=== PATIENT | female | born 1990 | race Hispanic/Latino ===

== ENCOUNTER 2016-10-20 14:36 | Emergency (ER) | payer OTHER ==
[2016-10-20 16:15] LABS: Basophils % (Auto) 0.6 % (0.0-1.8); Eosinophils % (Auto) 2.3 % (0.0-4.3); Hematocrit 40.5 % (30.3-42.9); Hemoglobin 13.3 gm/dl (10.1-14.3); Mean Corpuscular HGB Conc 33 % (30-34); Mean Corpuscular Hemoglobin 29 pg (28-32); Mean Corpuscular Volume 89 fl (79-97); Platelet Count 225 K/mm3 (140-440); Red Blood Count 4.56 M/mm3 (3.65-5.03); Red Cell Distribution Width 12.6 % (13.2-15.2); White Blood Count 3.7 K/mm3 (4.5-11.0)
[2016-10-20 16:35] LABS: BUN/Creatinine Ratio 21.66; Blood Urea Nitrogen 13 mg/dL (7-17); Calcium 8.5 mg/dL (8.4-10.2); Carbon Dioxide 26 mmol/L (22-30); Glucose 68 mg/dL (65-100)
[2016-10-20 16:36] LABS: Anion Gap 18 mmol/L; Potassium 3.9 mmol/L (3.6-5.0); Sodium 138 mmol/L (137-145)
[2016-10-20 22:57] LABS: Creatine Kinase 110 units/L (30-135)
[2016-10-20 23:00] LABS: Bilirubin,Urine NEG (Negative); Blood,Urine NEG (Negative); Ketones,Urine TR mg/dL (Negative); Leukocyte Esterase,Urine MOD (Negative); Mucus,Urine 3+ /HPF; Nitrite,Urine NEG (Negative); Urobilinogen,Urine < 2.0 mg/dL (<2.0)
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
[2016-10-20 23:05] LABS: Creatine Kinase MB < 1.0 ng/mL (0.0-4.0)
[2016-10-20 23:20] VITALS: BP 99/62
--- NOTE | 2016-10-21 08:02 | XRay Report ---
ROUTINE CHEST, TWO VIEWS: HISTORY: chest pain. The trachea, heart, mediastinal contour, lung eldridge and bony thorax are unremarkable. IMPRESSION: Unremarkable chest x-ray.
== END 2016-10-21 00:50 | disposition home or self-care (01) ==
LOC: ED 14:36
DX: N39.0 Urinary tract infection, site not specified (principal); R07.89 Other chest pain; G43.909 Migraine, unspecified, not intractable, without status migrainosus
CPT/HCPCS: 36415; 71020; 80048; 81001; 81025; 82550; 82553; 84484; 85025; 85379; 93005; 93010; 99285

== ENCOUNTER 2018-05-09 07:01 | Emergency (ER) | payer SELFPAY ==
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
[2018-05-09] MEDS ORDERED: ULTRAM PO ONE (10:31)
[2018-05-09 10:40] VITALS: BP 110/55
[2018-05-09] MEDS ORDERED: THERMAZENE 50 GRAM TP ONE (12:00)
== END 2018-05-09 10:40 | disposition home or self-care (01) ==
LOC: ED 07:01
DX: T20.10XA Burn of first degree of head, face, and neck, unspecified site, initial encounter (principal); T31.0 Burns involving less than 10% of body surface; G43.909 Migraine, unspecified, not intractable, without status migrainosus; X08.8XXA Exposure to other specified smoke, fire and flames, initial encounter; Y93.89 Activity, other specified; Y92.89 Other specified places as the place of occurrence of the external cause; Y99.8 Other external cause status
CPT/HCPCS: 99282

== ENCOUNTER 2019-03-22 18:18 | Emergency (ER) | payer SELFPAY | END 2019-03-22 18:27 | disposition left against medical advice (07) | LOC: ED 18:18 | DX: Z00.00 Encounter for general adult medical examination without abnormal findings (principal); Z53.21 Procedure and treatment not carried out due to patient leaving prior to being seen by health care provider ==

== ENCOUNTER 2021-11-20 22:10 | Outpatient (CLI) | payer OTHER ==
[2021-11-20 23:31] VITALS: BP 92/56
== END 2021-11-20 23:48 | disposition home or self-care (01) ==
LOC: TRG 22:10 → APU 22:12 → TRG 23:48
PROVIDERS: ATTEND Obstetrics & Gynecology
DX: Z34.93 Encounter for supervision of normal pregnancy, unspecified, third trimester (principal); Z3A.36 36 weeks gestation of pregnancy
CPT/HCPCS: 59025